=== PATIENT | female | born 1960 | race Caucasian/White ===

== ENCOUNTER 2018-07-27 10:47 | Inpatient (IN) | payer MEDICAID ==
[~2018-07-27] VITALS: Ht 162.6 cm; Wt 50.0 kg
[2018-07-27] MEDS ORDERED: IV NORMAL SALINE 1000ML BAG 1,000 ML IV ONE (11:45)
[2018-07-27] MEDS ORDERED: ONDANSETRON PF 4 MG/2 ML VIAL. IV ONE (11:45)
[2018-07-27] MEDS ORDERED: MORPHINE SULFATE 4 MG/ML VIAL. IV/SQ PRN (11:45)
[2018-07-27 11:53] LABS: BILIRUBIN,URINE NEGATIVE (NEG); CLARITY,URINE CLEAR; COLOR,URINE YELLOW; NITRITE,URINE NEGATIVE (NEG); PH,URINE 5.5; PROTEIN,URINE NEGATIVE (NEG-TRACE); UROBILINOGEN,URINE 0.2 mg/dL (0.2 mg/dL)
--- NOTE | 2018-07-27 12:06 | RAD ---
PORTABLE CHEST 1V History: Weakness. Lung cancer. The needle therapy.. No prior for comparison. Mild aortic tortuosity and calcification. Heart size not grossly enlarged. No evidence of pneumothorax, pleural effusion or consolidating infiltrate. The bones appear to be intact. IMPRESSION: No consolidating infiltrate. No priors for comparison. Electronically signed by: Henrry Presley MD (07/27/2018 12:03 PM) [facility]
[2018-07-27 12:20] LABS: BASO # 0.1 x10^3/uL (0.0-0.2); BASO % 1 % (0-3); EOS # 0.1 x10^3/uL (0.0-0.7); EOS % 1 % (0-3); HEMATOCRIT 44.7 % (36.0-47.0); HEMOGLOBIN 14.9 g/dL (12.0-15.5); LYMPH % 31 % (24-48); MEAN CORPUSCULAR HEMOGLOBIN 33 pg (25-35); MEAN CORPUSCULAR HGB CONC 34 g/dL (31-37); MEAN CORPUSCULAR VOLUME 98 fL (79-100); MONO # 0.3 x10^3/uL (0.0-1.1); MONO % 5 % (0-9); NEUT % 62 % (31-73); PLATELET COUNT 341 x10^3/uL (140-400); RED BLOOD COUNT 4.54 x10^6/uL (3.50-5.40); RED CELL DISTRIBUTION WIDTH 13.5 % (11.5-14.5); WHITE BLOOD COUNT 6.4 x10^3/uL (4.0-11.0)
[2018-07-27 12:27] LABS: CALCIUM 9.2 mg/dL (8.5-10.1); CREATININE 0.7 mg/dL (0.6-1.0); GFR 85.4; POTASSIUM 4.1 mmol/L (3.5-5.1)
[2018-07-27 12:31] LABS: SQUAMOUS EPITHELIAL CELL,UR MOD /LPF
[2018-07-27 12:32] LABS: ALBUMIN 4.3 g/dL (3.4-5.0); ALBUMIN/GLOBULIN RATIO 1.3 (1.0-1.7); MAGNESIUM 2.4 mg/dL (1.8-2.4); TOTAL BILIRUBIN 0.2 mg/dL (0.2-1.0); TOTAL PROTEIN 7.7 g/dL (6.4-8.2)
[2018-07-27 12:32] LABS: BACTERIA,URINE FEW /HPF (0-FEW); RBC,URINE 0 /HPF (0-2)
--- NOTE | 2018-07-27 12:56 | EKG ---
[facility] [address] [place] [address] Test Date: 2018-07-27 Test Time: 11:42:59 Pat Name: JENNYFER ORTEGA Department: Room: Gender: F Food Cart Attendant: : 1960 Requested By: JOSE ZAZUETA Order Number: [id number] Reading MD: Measurements Intervals [place] Rate: 62 P: 68 NC: 170 QRS: 112 QRSD: 94 T: 62 QT: 418 QTc: 427 Interpretive Statements SINUS RHYTHM LEFT ATRIAL ABNORMALITY ABNORMAL RIGHT AXIS DEVIATION QRS(T) CONTOUR ABNORMALITY CONSISTENT WITH ANTEROSEPTAL INFARCT AGE UNDETERMINED ABNORMAL ECG RI6.01 No previous ECG available for comparison
--- NOTE | 2018-07-27 15:40 | PHYS DOC ---
Past Medical History Past Medical History: Hypothyroid Additional Past Medical Histor: STAGE 4 LUNG CANCER Past Surgical History: Hysterectomy Alcohol Use: None Drug Use: None Adult General Chief Complaint Chief Complaint: WEAKNESS/GENERALIZED HPI HPI Patient is a 58 year old female with a history of right lung cancer on chemotherapy last treatment 3 weeks ago presents to the ED today complaining of generalized weakness that is chronic but has gotten worse in the last couple days. Patient states she gets a treatment at [facility]. Denies any fever, denies any chest pain or shortness of breath, she states she still a smoker. Review of Systems Review of Systems Constitutional: Reports generalized weakness. Denies fever or chills [] Eyes: Denies change in visual acuity, redness, or eye pain [] HENT: Denies nasal congestion or sore throat [] Respiratory: Denies cough or shortness of breath [] Cardiovascular: No additional information not addressed in HPI [] GI: Denies abdominal pain, nausea, vomiting, bloody stools or diarrhea [] : Denies dysuria or hematuria [] Musculoskeletal: Denies back pain or joint pain [] Integument: Denies rash or skin lesions [] Neurologic: Denies headache, focal weakness or sensory changes [] All other systems were reviewed and found to be within normal limits, except as documented in this note. Current Medications Current Medications Current Medications Medications (Trade) Dose Ordered Sig/Gladis Start Time Stop Time Status Last Admin Dose Admin Morphine Sulfate (Morphine Sulfate) 4 mg PRN Q15MIN PRN 07/27/18 11:45 07/28/18 11:44 07/27/18 12:00 4 MG Ondansetron HCl (Zofran) 4 mg 1X ONCE 07/27/18 11:45 07/27/18 11:46 DC 07/27/18 12:00 4 MG Sodium Chloride 1,000 ml @ 125 mls/hr 1X ONCE 07/27/18 11:45 07/27/18 19:44 07/27/18 12:00 125 MLS/HR Allergies Allergies Allergies Coded Allergies Type Severity Reaction Last Updated Verified No Known Drug Allergies 07/27/18 No Physical Exam Physical Exam Constitutional: Thin appearing patient, no acute distress, non-toxic appearance. [] HENT: Normocephalic, atraumatic, bilateral external ears normal, oropharynx moist, no oral exudates, nose normal. Missing multiple teeth. Eyes: PERRLA, EOMI, conjunctiva normal, no discharge. [] Neck: Normal range of motion, no tenderness, supple, no stridor. [] Cardiovascular:Heart rate regular rhythm, no murmur [] Lungs & Thorax: Bilateral breath sounds clear to auscultation [] Abdomen: Bowel sounds normal, soft, no tenderness, no masses, no pulsatile masses. [] Skin: Warm, dry, no erythema, no rash. [] Back: No tenderness, no CVA tenderness. [] Extremities: No tenderness, no cyanosis, no clubbing, ROM intact, no edema. [] Neurologic: Alert and oriented X 3, normal motor function, normal sensory function, no focal deficits noted. Cranial nerves II through XII intact Psychologic: Affect normal, judgement normal, mood normal. [] Current Patient Data Vital Signs Vital Signs Date Time Temp Pulse Resp B/P (MAP) Pulse Ox O2 Delivery O2 Flow Rate FiO2 07/27/18 14:00 50 16 98 07/27/18 12:00 Room Air 07/27/18 10:58 96.4 173/83 (113) 96.4 Lab Values Laboratory Tests Test 07/27/18 11:20 07/27/18 11:55 Urine Collection Type Unknown Urine Color Yellow Urine Clarity Clear Urine pH 5.5 Urine Specific [place] 1.010 Urine Protein Negative mg/dL (NEG-TRACE) Urine Glucose (UA) Negative mg/dL (NEG) Urine Ketones (Stick) Negative mg/dL (NEG) Urine Blood Negative (NEG) Urine Nitrite Negative (NEG) Urine Bilirubin Negative (NEG) Urine Urobilinogen Dipstick 0.2 mg/dL (0.2 mg/dL) Urine Leukocyte Esterase Negative (NEG) Urine RBC 0 /HPF (0-2) Urine WBC 1-4 /HPF (0-4) Urine Squamous Epithelial Cells Mod /LPF Urine Bacteria Few /HPF (0-FEW) White Blood Count 6.4 x10^3/uL (4.0-11.0) Red Blood Count 4.54 x10^6/uL (3.50-5.40) Hemoglobin 14.9 g/dL (12.0-15.5) Hematocrit 44.7 % (36.0-47.0) Mean Corpuscular Volume 98 fL (79-100) Mean Corpuscular Hemoglobin 33 pg (25-35) Mean Corpuscular Hemoglobin Concent 34 g/dL (31-37) Red Cell Distribution Width 13.5 % (11.5-14.5) Platelet Count 341 x10^3/uL (140-400) Neutrophils (%) (Auto) 62 % (31-73) Lymphocytes (%) (Auto) 31 % (24-48) Monocytes (%) (Auto) 5 % (0-9) Eosinophils (%) (Auto) 1 % (0-3) Basophils (%) (Auto) 1 % (0-3) Neutrophils # (Auto) 4.0 x10^3uL (1.8-7.7) Lymphocytes # (Auto) 2.0 x10^3/uL (1.0-4.8) Monocytes # (Auto) 0.3 x10^3/uL (0.0-1.1) Eosinophils # (Auto) 0.1 x10^3/uL (0.0-0.7) Basophils # (Auto) 0.1 x10^3/uL (0.0-0.2) Sodium Level 144 mmol/L (136-145) Potassium Level 4.1 mmol/L (3.5-5.1) Chloride Level 105 mmol/L (98-107) Carbon Dioxide Level 30 mmol/L (21-32) Anion Gap 9 (6-14) Blood Urea Nitrogen 9 mg/dL (7-20) Creatinine 0.7 mg/dL (0.6-1.0) Estimated GFR (Cockcroft-Gault) 85.4 BUN/Creatinine Ratio 13 (6-20) Glucose Level 94 mg/dL (70-99) Calcium Level 9.2 mg/dL (8.5-10.1) Magnesium Level 2.4 mg/dL (1.8-2.4) Total Bilirubin 0.2 mg/dL (0.2-1.0) Aspartate Amino Transferase (AST) 15 U/L (15-37) Alanine Aminotransferase (ALT) 23 U/L (14-59) Alkaline Phosphatase 72 U/L (46-116) Creatine Kinase 84 U/L (26-192) Creatine Kinase MB (Mass) 0.8 ng/mL (0.0-3.6) Creatine Kinase MB Relative Index 1.0 % (0-4) Troponin I Quantitative < 0.017 ng/mL (0.000-0.055) VO-Tqt-I-Type Natriuretic Peptide 155 pg/mL (0-124) H Total Protein 7.7 g/dL (6.4-8.2) Albumin 4.3 g/dL (3.4-5.0) Albumin/Globulin Ratio 1.3 (1.0-1.7) Lipase 474 U/L (73-393) H Thyroid Stimulating Hormone (TSH) 0.731 uIU/mL (0.358-3.74) Laboratory Tests 07/27/18 11:55 Laboratory Tests 07/27/18 11:55 EKG EKG Interpreted by sinus rhythm HR 62 no STEMI Radiology/Procedures Radiology/Procedures []PROCEDURE: PORTABLE CHEST 1V PORTABLE CHEST 1V History: Weakness. Lung cancer. The needle therapy.. No prior for comparison. Mild aortic tortuosity and calcification. Heart size not grossly enlarged. No evidence of pneumothorax, pleural effusion or consolidating infiltrate. The bones appear to be intact. IMPRESSION: No consolidating infiltrate. No priors for comparison. Electronically signed by: Henrry Presley MD (07/27/2018 12:03 PM) [facility] DICTATED and SIGNED BY: HENRRY PRESLEY MD DATE: 07/27/18 120 Course & Med Decision Making Course & Med Decision Making Pertinent Labs and Imaging studies reviewed. (See chart for details) This is a 58-year-old female patient with history of lung cancer currently on chemotherapy last treatment 3 weeks ago presented to the ED today complaining of generalized weakness chronic in nature but has gotten worse in the last couple days. CBC, CMP, negative for any acute findings, lipase 474, patient denies any abdominal pain. She states she has chronic nausea and vomiting from chemotherapy. Consulted with Dr. Gaona who accepted patient for admission Routine consult placed for oncology. Dragon Disclaimer Dragon Disclaimer This electronic medical record was generated, in whole or in part, using a voice recognition dictation system. Departure Departure Impression: Primary Impression: Generalized weakness Additional Impression: Lung cancer Disposition: ADMITTED INPATIENT Condition: STABLE Referrals: NO PCP (PCP) Problem Qualifiers Additional Impression: Lung cancer Laterality: right Lung location: unspecified part of lung Qualified Codes: C34.91 - Malignant neoplasm of unspecified part of right bronchus or lung MUTUNGA,JOSE WARP TRUCKER July 27, 2018 15:40
[2018-07-27] MEDS ORDERED: ONDANSETRON PF 4 MG/2 ML VIAL. IV PRN (15:45)
[2018-07-27] MEDS: MORPHINE SULFATE 4 MG/ML VIAL. IV PRN ×2 (16:25→20:53)
[2018-07-27] MEDS ORDERED: LEVO75TA5 PO (18:10)
[2018-07-27] MEDS ORDERED: CITA40TA12 PO (18:10)
[2018-07-27] MEDS ORDERED: ASPI-630 PO (18:10)
[2018-07-27 19:00] VITALS: BP 126/75
--- NOTE | 2018-07-27 19:33 | PDOC1 ---
History and Physical Date of Admission: Date of Admission DATE: 07/27/18 TIME: 19:30 Chief Complaint: Problems: (1) Generalized weakness (2) Lung cancer Chief Complain: Weakness History of Present Illness: HPI: This is a middle-aged white female who has cancer I suspected his lung cancer although she tells minutes lymphoma She's been getting chemotherapy Now she sick and weak and barely walk Rates that 10 out 10 Worse with sitting I discussed the case with ER physician were mentum at the patient and consult oncology Past Medical/Surgical History: PMH/PSH: Past Medical History: Hypothyroid Additional Past Medical Histor: STAGE 4 LUNG CANCER Past Surgical History: Hysterectomy Allergies: Allergies: Coded Allergies: No Known Drug Allergies (Unverified , 07/27/18) Family History: Family History: Lung cancer Social History: Social Hisoty: She smoked I think she quit no drink or drugs Current Medications: Current Medications Current Medications Morphine Sulfate (Morphine Sulfate) 4 mg PRN Q15MIN PRN IV/SQ PAIN GREATER THAN 3/10 Last administered on 07/27/18at 12:00; Start 07/27/18 at 11:45; Stop 07/28/18 at 11:44 Ondansetron HCl (Zofran) 4 mg 1X ONCE IV Last administered on 07/27/18at 12:00; Start 07/27/18 at 11:45; Stop 07/27/18 at 11:46; Status DC Sodium Chloride 1,000 ml @ 125 mls/hr 1X ONCE IV Last administered on 07/27/18at 12:00; Start 07/27/18 at 11:45; Stop 07/27/18 at 19:44 Amino Acids/ Glycerin/ Electrolytes 1,000 ml @ 80 mls/hr [id number] IV ; Start 07/27/18 at 14:15 Ondansetron HCl (Zofran) 4 mg PRN Q8HRS PRN IV NAUSEA/VOMITING; Start 07/27/18 at 15:45; Stop 07/28/18 at 15:44 Morphine Sulfate (Morphine Sulfate) 4 mg PRN Q2HR PRN IV PAIN Last administered on 07/27/18at 16:25; Start 07/27/18 at 15:45; Stop 07/28/18 at 15:44 Active Scripts Active Reported Levothyroxine Sodium 75 Mcg Tablet 75 Mcg PO DAILYAC Celexa (Citalopram Hydrobromide) 40 Mg Tablet 40 Mg PO DAILY Aspirin 81 Mg Tab.chew 81 Mg PO DAILY ROS: Review of Systems Review of System REVIEW OF SYSTEMS: GENERAL: Complains of severe weakness SKIN: No bruising, hair changes or rashes. EYES: No blurred, double or loss of vision. NOSE AND THROAT: No history of nosebleeds, hoarseness or sore throat. HEART: No history of palpitations, chest pain or shortness of breath on exertion. LUNGS: Complains of shortness of breath and cough GASTROINTESTINAL: Denies changes in appetite, nausea, vomiting, diarrhea or constipation. GENITOURINARY: No history of frequency, urgency, hesitancy or nocturia. NEUROLOGIC: Denies history of numbness, tingling, tremor or weakness. PSYCHIATRIC: No history of panic, anxiety or depression. ENDOCRINE: No history of heat or cold intolerance, polyuria or polydipsia. EXTREMITIES: Denies muscle weakness, joint pain, pain on walking or stiffness. Physical Exam: Vital Signs: Vital Signs Date Time Temp Pulse Resp B/P (MAP) Pulse Ox O2 Delivery O2 Flow Rate FiO2 07/27/18 17:35 Room Air 07/27/18 14:55 56 15 98 07/27/18 10:58 96.4 173/83 (113) 96.4 Physcial Exam: GEN.: Frail and extremely weak HEENT: Head is normocephalic, atraumatic NECK: Supple, no JVD LUNGS: Clear to auscultation without rhonchi or wheezing HEART: RRR, S1, S2 present. Peripheral pulses intact ABDOMEN: Soft, nontender. Positive bowel sounds no organomegaly EXTREMITIES: Without any cyanosis, clubbing, or edema. Pedal pulses intact NEUROLOGIC: Extremely weak PSYCHIATRIC: Normal affect, normal mood. Stable SKIN: No ulcerations or rashes VASCULAR: Good capillary refill Labs: Labs: Laboratory Tests Test 07/27/18 11:20 07/27/18 11:55 Urine Collection Type Unknown Urine Color Yellow Urine Clarity Clear Urine pH 5.5 Urine Specific [place] 1.010 Urine Protein Negative mg/dL (NEG-TRACE) Urine Glucose (UA) Negative mg/dL (NEG) Urine Ketones (Stick) Negative mg/dL (NEG) Urine Blood Negative (NEG) Urine Nitrite Negative (NEG) Urine Bilirubin Negative (NEG) Urine Urobilinogen Dipstick 0.2 mg/dL (0.2 mg/dL) Urine Leukocyte Esterase Negative (NEG) Urine RBC 0 /HPF (0-2) Urine WBC 1-4 /HPF (0-4) Urine Squamous Epithelial Cells Mod /LPF Urine Bacteria Few /HPF (0-FEW) White Blood Count 6.4 x10^3/uL (4.0-11.0) Red Blood Count 4.54 x10^6/uL (3.50-5.40) Hemoglobin 14.9 g/dL (12.0-15.5) Hematocrit 44.7 % (36.0-47.0) Mean Corpuscular Volume 98 fL (79-100) Mean Corpuscular Hemoglobin 33 pg (25-35) Mean Corpuscular Hemoglobin Concent 34 g/dL (31-37) Red Cell Distribution Width 13.5 % (11.5-14.5) Platelet Count 341 x10^3/uL (140-400) Neutrophils (%) (Auto) 62 % (31-73) Lymphocytes (%) (Auto) 31 % (24-48) Monocytes (%) (Auto) 5 % (0-9) Eosinophils (%) (Auto) 1 % (0-3) Basophils (%) (Auto) 1 % (0-3) Neutrophils # (Auto) 4.0 x10^3uL (1.8-7.7) Lymphocytes # (Auto) 2.0 x10^3/uL (1.0-4.8) Monocytes # (Auto) 0.3 x10^3/uL (0.0-1.1) Eosinophils # (Auto) 0.1 x10^3/uL (0.0-0.7) Basophils # (Auto) 0.1 x10^3/uL (0.0-0.2) Sodium Level 144 mmol/L (136-145) Potassium Level 4.1 mmol/L (3.5-5.1) Chloride Level 105 mmol/L (98-107) Carbon Dioxide Level 30 mmol/L (21-32) Anion Gap 9 (6-14) Blood Urea Nitrogen 9 mg/dL (7-20) Creatinine 0.7 mg/dL (0.6-1.0) Estimated GFR (Cockcroft-Gault) 85.4 BUN/Creatinine Ratio 13 (6-20) Glucose Level 94 mg/dL (70-99) Calcium Level 9.2 mg/dL (8.5-10.1) Magnesium Level 2.4 mg/dL (1.8-2.4) Total Bilirubin 0.2 mg/dL (0.2-1.0) Aspartate Amino Transf (AST/SGOT) 15 U/L (15-37) Alanine Aminotransferase (ALT/SGPT) 23 U/L (14-59) Alkaline Phosphatase 72 U/L (46-116) Creatine Kinase 84 U/L (26-192) Creatine Kinase MB (Mass) 0.8 ng/mL (0.0-3.6) Creatine Kinase MB Relative Index 1.0 % (0-4) Troponin I Quantitative < 0.017 ng/mL (0.000-0.055) MX-Kpx-X-Type Natriuretic Peptide 155 pg/mL (0-124) Total Protein 7.7 g/dL (6.4-8.2) Albumin 4.3 g/dL (3.4-5.0) Albumin/Globulin Ratio 1.3 (1.0-1.7) Lipase 474 U/L (73-393) Thyroid Stimulating Hormone (TSH) 0.731 uIU/mL (0.358-3.74) Laboratory Tests Test 07/27/18 11:20 07/27/18 11:55 Urine Collection Type Unknown Urine Color Yellow Urine Clarity Clear Urine pH 5.5 Urine Specific [place] 1.010 Urine Protein Negative mg/dL (NEG-TRACE) Urine Glucose (UA) Negative mg/dL (NEG) Urine Ketones (Stick) Negative mg/dL (NEG) Urine Blood Negative (NEG) Urine Nitrite Negative (NEG) Urine Bilirubin Negative (NEG) Urine Urobilinogen Dipstick 0.2 mg/dL (0.2 mg/dL) Urine Leukocyte Esterase Negative (NEG) Urine RBC 0 /HPF (0-2) Urine WBC 1-4 /HPF (0-4) Urine Squamous Epithelial Cells Mod /LPF Urine Bacteria Few /HPF (0-FEW) White Blood Count 6.4 x10^3/uL (4.0-11.0) Red Blood Count 4.54 x10^6/uL (3.50-5.40) Hemoglobin 14.9 g/dL (12.0-15.5) Hematocrit 44.7 % (36.0-47.0) Mean Corpuscular Volume 98 fL (79-100) Mean Corpuscular Hemoglobin 33 pg (25-35) Mean Corpuscular Hemoglobin Concent 34 g/dL (31-37) Red Cell Distribution Width 13.5 % (11.5-14.5) Platelet Count 341 x10^3/uL (140-400) Neutrophils (%) (Auto) 62 % (31-73) Lymphocytes (%) (Auto) 31 % (24-48) Monocytes (%) (Auto) 5 % (0-9) Eosinophils (%) (Auto) 1 % (0-3) Basophils (%) (Auto) 1 % (0-3) Neutrophils # (Auto) 4.0 x10^3uL (1.8-7.7) Lymphocytes # (Auto) 2.0 x10^3/uL (1.0-4.8) Monocytes # (Auto) 0.3 x10^3/uL (0.0-1.1) Eosinophils # (Auto) 0.1 x10^3/uL (0.0-0.7) Basophils # (Auto) 0.1 x10^3/uL (0.0-0.2) Sodium Level 144 mmol/L (136-145) Potassium Level 4.1 mmol/L (3.5-5.1) Chloride Level 105 mmol/L (98-107) Carbon Dioxide Level 30 mmol/L (21-32) Anion Gap 9 (6-14) Blood Urea Nitrogen 9 mg/dL (7-20) Creatinine 0.7 mg/dL (0.6-1.0) Estimated GFR (Cockcroft-Gault) 85.4 BUN/Creatinine Ratio 13 (6-20) Glucose Level 94 mg/dL (70-99) Calcium Level 9.2 mg/dL (8.5-10.1) Magnesium Level 2.4 mg/dL (1.8-2.4) Total Bilirubin 0.2 mg/dL (0.2-1.0) Aspartate Amino Transf (AST/SGOT) 15 U/L (15-37) Alanine Aminotransferase (ALT/SGPT) 23 U/L (14-59) Alkaline Phosphatase 72 U/L (46-116) Creatine Kinase 84 U/L (26-192) Creatine Kinase MB (Mass) 0.8 ng/mL (0.0-3.6) Creatine Kinase MB Relative Index 1.0 % (0-4) Troponin I Quantitative < 0.017 ng/mL (0.000-0.055) DX-Xzj-D-Type Natriuretic Peptide 155 pg/mL (0-124) Total Protein 7.7 g/dL (6.4-8.2) Albumin 4.3 g/dL (3.4-5.0) Albumin/Globulin Ratio 1.3 (1.0-1.7) Lipase 474 U/L (73-393) Thyroid Stimulating Hormone (TSH) 0.731 uIU/mL (0.358-3.74) Images: Images Chest x-ray shows no acute changes Assessment/Plan Assessment/Plan Lung cancer with recent chemotherapy debility weakness Plan Cardiac monitoring Consult oncology Daily CBC BMP Home meds PT OT Full code DVT prophylaxis Long-term prognosis extremely guarded This lady is quite ill BROCK DIAZ III DO July 27, 2018 19:33
[2018-07-27] MEDS: AMINO AC 3%/ELECTROLYTE/GLYCER 1,000 ML IV SCH (20:53)
[2018-07-27 23:04] VITALS: BP 106/48
[2018-07-28 03:12] VITALS: BP 113/45
[2018-07-28] MEDS: MORPHINE SULFATE 4 MG/ML VIAL. IV PRN ×2 (04:20→08:58)
[2018-07-28 07:00] VITALS: BP 104/55
[2018-07-28 08:18] LABS: BASO # 0.1 x10^3/uL (0.0-0.2); BASO % 1 % (0-3); EOS # 0.2 x10^3/uL (0.0-0.7); EOS % 2 % (0-3); HEMATOCRIT 38.7 % (36.0-47.0); HEMOGLOBIN 12.8 g/dL (12.0-15.5); LYMPH # 2.6 x10^3/uL (1.0-4.8); LYMPH % 35 % (24-48); MEAN CORPUSCULAR HEMOGLOBIN 33 pg (25-35); MEAN CORPUSCULAR HGB CONC 33 g/dL (31-37); MEAN CORPUSCULAR VOLUME 98 fL (79-100); MONO # 0.5 x10^3/uL (0.0-1.1); MONO % 7 % (0-9); NEUT # 4.1 x10^3uL (1.8-7.7); NEUT % 55 % (31-73); PLATELET COUNT 282 x10^3/uL (140-400); RED BLOOD COUNT 3.93 x10^6/uL (3.50-5.40); RED CELL DISTRIBUTION WIDTH 13.9 % (11.5-14.5); WHITE BLOOD COUNT 7.5 x10^3/uL (4.0-11.0)
[2018-07-28 08:45] LABS: CALCIUM 8.3 mg/dL (8.5-10.1); CREATININE 0.6 mg/dL (0.6-1.0); POTASSIUM 4.6 mmol/L (3.5-5.1)
[2018-07-28] MEDS: AMINO AC 3%/ELECTROLYTE/GLYCER 1,000 ML IV SCH (09:01)
[2018-07-28 11:00] VITALS: BP 95/58
[2018-07-28] MEDS ORDERED: MORP15TA PO (13:52)
--- NOTE | 2018-07-28 14:09 | PDOC3 ---
Discharge Summary Visit Information Date of Admission: July 27, 2018 Date of Discharge: July 28, 2018 Admitting Diagnosis: Generalized weakness Final Diagnosis Problems Medical Problems: (1) Generalized weakness Status: Acute (2) Lung cancer Status: Acute Brief Hospital Course Allergies Allergies Coded Allergies Type Severity Reaction Last Updated Verified No Known Drug Allergies 07/27/18 No Vital Signs Vital Signs Date Time Temp Pulse Resp B/P (MAP) Pulse Ox O2 Delivery O2 Flow Rate FiO2 07/28/18 11:00 98.3 62 18 95/58 (70) 98 Room Air 98.3 Lab Results Laboratory Tests Test 07/27/18 11:20 07/27/18 11:55 07/28/18 07:43 Urine Collection Type Unknown Urine Color Yellow Urine Clarity Clear Urine pH 5.5 Urine Specific [place] 1.010 Urine Protein Negative mg/dL (NEG-TRACE) Urine Glucose (UA) Negative mg/dL (NEG) Urine Ketones (Stick) Negative mg/dL (NEG) Urine Blood Negative (NEG) Urine Nitrite Negative (NEG) Urine Bilirubin Negative (NEG) Urine Urobilinogen Dipstick 0.2 mg/dL (0.2 mg/dL) Urine Leukocyte Esterase Negative (NEG) Urine RBC 0 /HPF (0-2) Urine WBC 1-4 /HPF (0-4) Urine Squamous Epithelial Cells Mod /LPF Urine Bacteria Few /HPF (0-FEW) White Blood Count 6.4 x10^3/uL (4.0-11.0) 7.5 x10^3/uL (4.0-11.0) Red Blood Count 4.54 x10^6/uL (3.50-5.40) 3.93 x10^6/uL (3.50-5.40) Hemoglobin 14.9 g/dL (12.0-15.5) 12.8 g/dL (12.0-15.5) Hematocrit 44.7 % (36.0-47.0) 38.7 % (36.0-47.0) Mean Corpuscular Volume 98 fL (79-100) 98 fL (79-100) Mean Corpuscular Hemoglobin 33 pg (25-35) 33 pg (25-35) Mean Corpuscular Hemoglobin Concent 34 g/dL (31-37) 33 g/dL (31-37) Red Cell Distribution Width 13.5 % (11.5-14.5) 13.9 % (11.5-14.5) Platelet Count 341 x10^3/uL (140-400) 282 x10^3/uL (140-400) Neutrophils (%) (Auto) 62 % (31-73) 55 % (31-73) Lymphocytes (%) (Auto) 31 % (24-48) 35 % (24-48) Monocytes (%) (Auto) 5 % (0-9) 7 % (0-9) Eosinophils (%) (Auto) 1 % (0-3) 2 % (0-3) Basophils (%) (Auto) 1 % (0-3) 1 % (0-3) Neutrophils # (Auto) 4.0 x10^3uL (1.8-7.7) 4.1 x10^3uL (1.8-7.7) Lymphocytes # (Auto) 2.0 x10^3/uL (1.0-4.8) 2.6 x10^3/uL (1.0-4.8) Monocytes # (Auto) 0.3 x10^3/uL (0.0-1.1) 0.5 x10^3/uL (0.0-1.1) Eosinophils # (Auto) 0.1 x10^3/uL (0.0-0.7) 0.2 x10^3/uL (0.0-0.7) Basophils # (Auto) 0.1 x10^3/uL (0.0-0.2) 0.1 x10^3/uL (0.0-0.2) Sodium Level 144 mmol/L (136-145) 143 mmol/L (136-145) Potassium Level 4.1 mmol/L (3.5-5.1) 4.6 mmol/L (3.5-5.1) Chloride Level 105 mmol/L (98-107) 106 mmol/L (98-107) Carbon Dioxide Level 30 mmol/L (21-32) 29 mmol/L (21-32) Anion Gap 9 (6-14) 8 (6-14) Blood Urea Nitrogen 9 mg/dL (7-20) 11 mg/dL (7-20) Creatinine 0.7 mg/dL (0.6-1.0) 0.6 mg/dL (0.6-1.0) Estimated GFR (Cockcroft-Gault) 85.4 102.0 BUN/Creatinine Ratio 13 (6-20) Glucose Level 94 mg/dL (70-99) 91 mg/dL (70-99) Calcium Level 9.2 mg/dL (8.5-10.1) 8.3 mg/dL (8.5-10.1) Magnesium Level 2.4 mg/dL (1.8-2.4) Total Bilirubin 0.2 mg/dL (0.2-1.0) Aspartate Amino Transf (AST/SGOT) 15 U/L (15-37) Alanine Aminotransferase (ALT/SGPT) 23 U/L (14-59) Alkaline Phosphatase 72 U/L (46-116) Creatine Kinase 84 U/L (26-192) Creatine Kinase MB (Mass) 0.8 ng/mL (0.0-3.6) Creatine Kinase MB Relative Index 1.0 % (0-4) Troponin I Quantitative < 0.017 ng/mL (0.000-0.055) QR-Cov-I-Type Natriuretic Peptide 155 pg/mL (0-124) Total Protein 7.7 g/dL (6.4-8.2) Albumin 4.3 g/dL (3.4-5.0) Albumin/Globulin Ratio 1.3 (1.0-1.7) Lipase 474 U/L (73-393) Thyroid Stimulating Hormone (TSH) 0.731 uIU/mL (0.358-3.74) Laboratory Tests Test 07/28/18 07:43 White Blood Count 7.5 x10^3/uL (4.0-11.0) Red Blood Count 3.93 x10^6/uL (3.50-5.40) Hemoglobin 12.8 g/dL (12.0-15.5) Hematocrit 38.7 % (36.0-47.0) Mean Corpuscular Volume 98 fL (79-100) Mean Corpuscular Hemoglobin 33 pg (25-35) Mean Corpuscular Hemoglobin Concent 33 g/dL (31-37) Red Cell Distribution Width 13.9 % (11.5-14.5) Platelet Count 282 x10^3/uL (140-400) Neutrophils (%) (Auto) 55 % (31-73) Lymphocytes (%) (Auto) 35 % (24-48) Monocytes (%) (Auto) 7 % (0-9) Eosinophils (%) (Auto) 2 % (0-3) Basophils (%) (Auto) 1 % (0-3) Neutrophils # (Auto) 4.1 x10^3uL (1.8-7.7) Lymphocytes # (Auto) 2.6 x10^3/uL (1.0-4.8) Monocytes # (Auto) 0.5 x10^3/uL (0.0-1.1) Eosinophils # (Auto) 0.2 x10^3/uL (0.0-0.7) Basophils # (Auto) 0.1 x10^3/uL (0.0-0.2) Sodium Level 143 mmol/L (136-145) Potassium Level 4.6 mmol/L (3.5-5.1) Chloride Level 106 mmol/L (98-107) Carbon Dioxide Level 29 mmol/L (21-32) Anion Gap 8 (6-14) Blood Urea Nitrogen 11 mg/dL (7-20) Creatinine 0.6 mg/dL (0.6-1.0) Estimated GFR (Cockcroft-Gault) 102.0 Glucose Level 91 mg/dL (70-99) Calcium Level 8.3 mg/dL (8.5-10.1) Brief Hospital Course This is a middle-aged white female who has cancer I suspected his lung cancer although she tells minutes lymphoma She's been getting chemotherapy Now she sick and weak and barely walk Rates that 10 out 10 Worse with sitting I discussed the case with ER physician were mentum at the patient and consult oncology She was started on Procalamine overnight. Patient felt much improved and was able to eat quite well during her brief hospital stay. Dr Tran saw patient in consultation. He encouraged the patient to follow up with her [facility] oncologist. She is currently on Keytruda. she was provided with a script for morphine oral tab for ehr pain mangement. I ahve encouraged her to follow up with her primary care physician to manage her pain moving forward. Lungs clear to auscultation with good inspiratory effort CVS s1s2 rr no murmurs Discharge Information Condition at Discharge: Improved Follow Up: Weeks Disposition/Orders: D/C to Home Scheduled Aspirin (Aspirin) 81 Mg Tab.chew, 81 MG PO DAILY for heart health, (Reported) Entered as Reported by: AMBREEN AREVALO RN on 07/27/181809 Last Action: New Order on 07/27/181809 by AMBREEN AREVALO RN Citalopram Hydrobromide (Celexa) 40 Mg Tablet, 40 MG PO DAILY for depression, (Reported) Entered as Reported by: AMBREEN AREVALO RN on 07/27/181809 Last Action: New Order on 07/27/181809 by AMBREEN AREVALO RN Levothyroxine Sodium (Levothyroxine Sodium) 75 Mcg Tablet, 75 MCG PO DAILYAC for THYROID SUPPLEMENT, #30 Ref 0 (Reported) Entered as Reported by: AMBREEN AREVALO RN on 07/27/181809 Last Action: New Order on 07/27/181809 by AMBREEN AREVALO RN Morphine Sulfate (Morphine Sulfate) 15 Mg Tablet, 1 TAB PO QID for severe pain for 7 Days, #28 Prescribed by: JOSUE MATTHEW MD on 07/28/18 1352 JOSUE MATTHEW MD July 28, 2018 14:09
--- NOTE | 2018-07-28 15:19 | NUR ---
Discharge Note: [place] Discharge instructions and discharge home medications reviewed with Patient and a copy given. All questions have been answered and understanding verbalized. The following instructions and handouts were given: follow up with PCP within 1-2 weeks, follow up with oncologist at [facility], reviewed meds, education on weakness and meds Discontinued lines and drains: Peripheral IV intact. Patient discharged to Home with Family Member via private vehicle
--- NOTE | 2018-07-29 03:02 | CONS ---
DATE OF CONSULTATION: 07/28/2018 MEDICAL ONCOLOGY CONSULTATION CONSULTATION REQUESTED BY: Dr. Sayda Gaona REASON FOR CONSULTATION: Stage 4 lung cancer, on Keytruda, now admitted with generalized weakness. HISTORY OF PRESENT ILLNESS: The patient is a 58-year-old female who was diagnosed with stage 4 non-small cell lung cancer with bilateral lung metastasis in May 2017 and she was treated by Dr. Paz at [place]. She also had evidence of supraclavicular, mediastinal and bilateral hilar lymph nodes. MRI of the brain negative for metastatic disease. PET scan in May 2017 revealed uptake in the left upper lobe lung lesion, left supraclavicular pretracheal and aortopulmonary lymph nodes. PD-L1 was 80% positive. ALK negative, EGFR negative, MET negative, NRAS negative, RET negative, ROS1 negative, PIK3CA negative. She was started on Pembrolizumab single agent treatment in May 2017 and her disease was well controlled. She subsequently transferred her care to Dr. Landeros at [facility]. She continues to receive Keytruda and her most recent treatment was given on 07/06/2018. She was due for next cycle, cycle #17, on 07/27/2018, but she was unable to make it to the appointment because of generalized weakness. She reports having had diarrhea, which was severe for about 2 episodes last week and she felt significantly weak and hence she came in to [facility] and she was admitted on 07/27/2018 and given IV fluids. She is feeling better now. PAST MEDICAL HISTORY: Hypothyroidism, depression. She also has history of pancreatitis, hypertension, gastric ulcer, cervical cancer in the 1980s, history of anxiety. FAMILY HISTORY: Father had lung cancer and prostate cancer. Sister had breast and ovarian cancer. SOCIAL HISTORY: She has a history of cigarette smoking 2 packs per day. REVIEW OF SYSTEMS: A 12-point review of systems was performed. Pertinent positives are mentioned in the history of present illness. Rest of the system review is negative. PHYSICAL EXAMINATION: GENERAL APPEARANCE: The patient is a 58-year-old female who is in no acute cardiorespiratory distress. VITAL SIGNS: Blood pressure 95/58, temperature 98.3. HEAD: Atraumatic, normocephalic. EYES: No icterus. NECK: Supple. CHEST: Bilaterally symmetrical. HEART: S1, S2 normal. ABDOMEN: Soft, nontender. No hepatosplenomegaly. CENTRAL NERVOUS SYSTEM: No focal deficits. LYMPHATICS: No lymphadenopathy. SKIN: No rashes. PSYCHOLOGIC: Mood and affect are appropriate. LABORATORY DATA: WBC 7.5, hemoglobin 12.8, platelet count 282. Creatinine 0.6, calcium 8.3. IMPRESSION AND PLAN: 1. Stage 4 lung cancer with bilateral lung metastasis, supraclavicular lymphadenopathy and mediastinal lymphadenopathy. She was started on Keytruda in May 2017 and she continues to respond well. She was due for her next treatment on 07/27/2018, which will be deferred because of generalized weakness. I have advised her to follow up with Dr. Landeros upon discharge for continuation of treatment. I do not suspect the current admission to be related to her ongoing treatments. 2. Diarrhea about a week ago. She had 2 days of severe diarrhea, which is now resolved. 3. Generalized weakness, likely due to dehydration because of diarrhea. She is feeling better now. 4. I discussed with her primary medical team and agree to discharge her once she feels better and follow up with her oncologist at [facility]. SATYA JENKINS MD DR: MARANDA/prakash JOB#: [id number] / [id number]
== END 2018-07-28 15:00 | disposition home or self-care (01) | DRG 641 ==
LOC: ER 10:47 → 5 NORTH 14:00
PROVIDERS: ADMIT Internal Medicine; ATTEND Internal Medicine
DX: E86.0 Dehydration (principal); C78.01 Secondary malignant neoplasm of right lung; C34.90 Malignant neoplasm of unspecified part of unspecified bronchus or lung; C78.02 Secondary malignant neoplasm of left lung; R53.1 Weakness; E03.9 Hypothyroidism, unspecified; I10 Essential (primary) hypertension; F32.9 Major depressive disorder, single episode, unspecified; F41.9 Anxiety disorder, unspecified; Z80.1 Family history of malignant neoplasm of trachea, bronchus and lung; Z80.41 Family history of malignant neoplasm of ovary; Z85.41 Personal history of malignant neoplasm of cervix uteri; Z87.11 Personal history of peptic ulcer disease; Z87.891 Personal history of nicotine dependence; Z90.710 Acquired absence of both cervix and uterus; Z92.21 Personal history of antineoplastic chemotherapy
CPT/HCPCS: 36415; 71045; 80048; 80053; 81001; 82553; 83690; 83735; 83880; 84443; 84484; 85025; 93005; 96361; 96374; 96375; J2270; J2405; J7030; 99285-25